=== PATIENT | female | born 1945 | race Caucasian/White ===

== ENCOUNTER → 2018-01-18 | Outpatient (CLI) | payer OTHER ==
[~2018-01-18] MED LIST: Aspir 8181 MG PO; BUPR75 PO; CALCAVITDA PO; CHOL10002 PO; CITA20 PO; LEVSOD125 PO; LISI20 PO; RANI150 PO
[2018-01-18 15:25] LABS: Source, Urine Clean Catch
[2018-01-18 16:45] LABS: Appearance, Urine Clear (Clear); Bilirubin, Urine Neg (Neg); Blood, Urine 1+ (Neg); Color, Urine Yellow (P-Yellow); Glucose Qualitative, Urine Neg (Neg); Ketones, Urine Neg (Neg); Leukocyte Esterase, Urine Neg (Neg); Nitrite, Urine Neg (Neg); Protein, Urine Neg (Neg); Specific Gravity, Urine 1.025 (1.003-1.022); Urobilinogen, Urine NORM (Normal)
[2018-01-18 17:06] LABS: Mucus Light (0-Heavy)
[2018-01-18 17:07] LABS: White Blood Cells, Urine 0-2 /hpf (0-5)
[2018-01-18 17:08] LABS: Bacteria Rare /hpf; Squamous Epithelial Cells Few /hpf (Few)
== END ==
LOC: LAB 14:41 → LAB SHORT 14:41
PROVIDERS: Registered Nurse
DX: R82.99 Other abnormal findings in urine (principal)
CPT/HCPCS: 81001